=== PATIENT | male | born 1990 | race Caucasian/White ===

== ENCOUNTER 2017-08-17 04:45 | Emergency (ER) | payer SELFPAY ==
[2017-08-17 04:59] VITALS: BP 129/77; RESP 16; TEMP 98.7; O2SAT 99
--- NOTE | 2017-08-17 05:05 | ED PDOC ---
HPI: Psych/Substance Abuse Time Seen by Provider: 08/17/17 05:00 Chief Complaint (Nursing): Alcohol Ingestion Chief Complaint (Provider): etoh History Per: Patient, Other (HPD) Additional Complaint(s): 27 y/o male brought in by Anmol MANEUL for evaluation of acute alcohol intoxication. Patient states he drank "a lot" tonight, was coming back to [place] from [place]; states he woke up on the streets [place] by police. Patient denies known injury, pain, or psychiatric complaints at this time. Past Medical History Reviewed: Historical Data, Nursing Documentation, Vital Signs Vital Signs: Last Vital Signs Temp 98.7 F 08/17/17 04:54 Pulse 101 H 08/17/17 04:54 Resp 16 08/17/17 04:54 BP 129/77 08/17/17 04:54 Pulse Ox 99 08/17/17 04:54 - Medical History PMH: Asthma - Surgical History Surgical History: No Surg Hx - Family History Family History: States: No Known Family Hx - Allergies Allergies/Adverse Reactions: Allergies Allergy/AdvReac Type Severity Reaction Status Date / Time No Known Allergies Allergy Verified 08/17/17 05:02 Review of Systems ROS Statement: Except As Marked, All Systems Reviewed And Found Negative Physical Exam - Reviewed Nursing Documentation Reviewed: Yes Vital Signs Reviewed: Yes - Physical Exam Appears: Positive for: Well, Non-toxic, No Acute Distress Head Exam: Positive for: ATRAUMATIC, NORMAL INSPECTION, NORMOCEPHALIC Skin: Positive for: Normal Color Eye Exam: Positive for: Normal appearance ENT: Positive for: Normal ENT Inspection Cardiovascular/Chest: Positive for: Regular Rate, Rhythm Respiratory: Positive for: Normal Breath Sounds Gastrointestinal/Abdominal: Positive for: Normal Exam Back: Positive for: Normal Inspection Extremity: Positive for: Normal ROM Neurologic/Psych: Positive for: Alert, Oriented (x3) - ECG O2 Sat by Pulse Oximetry: 99 - Progress ED Course And Treament: Patient AAOx3; ambulating steady gait Stable for discharge Disposition - Clinical Impression Clinical Impression: Alcohol intoxication - Patient ED Disposition Is Patient to be Admitted: No Counseled Patient/Family Regarding: Diagnosis, Need For Followup - Disposition Disposition: Routine/Home Disposition Time: 05:19 Condition: STABLE Instructions: Alcohol Use - When Is Drinking a Problem?
[2017-08-17 05:55] VITALS: PULSE 90
== END 2017-08-17 05:33 | disposition home or self-care (01) ==
LOC: H.ER 04:45
DX: F10.129 Alcohol abuse with intoxication, unspecified (principal); J45.909 Unspecified asthma, uncomplicated